=== PATIENT | female | born 1980 | race Caucasian/White ===

== ENCOUNTER 2023-10-05 11:52 | Emergency (ER) | payer OTHER ==
[~2023-10-05] VITALS: Ht 167.6 cm; Wt 77.1 kg
[2023-10-05 15:12] VITALS: BP 127/75
== END 2023-10-05 16:50 | disposition home or self-care (01) ==
LOC: ER 11:52
DX: K44.9 Diaphragmatic hernia without obstruction or gangrene (principal); K21.9 Gastro-esophageal reflux disease without esophagitis; R11.0 Nausea; Z88.8 Allergy status to other drugs, medicaments and biological substances

== ENCOUNTER 2023-12-27 10:50 | Emergency (ER) | payer OTHER ==
[~2023-12-27] VITALS: Ht 170.2 cm; Wt 68.0 kg
[~2023-12-27 10:50] MED LIST: ALMACONE SUSPE355 ML PO; ANUCORT-HC25 M6 PR; Amoxicillin500 MG PO; DOC250 PO; FAMO20 PO; METO10 PO; OMEP20ER PO; PROM12.5S PR; Zofran4 MG PO
[2023-12-27] MEDS ORDERED: Pantoprazole Sodium 40 MG Injection IV ONE (11:00)
[2023-12-27] MEDS ORDERED: Droperidol 5 mg/2 ml Vial IV ONE (11:00)
[2023-12-27] MEDS ORDERED: NS 1,000 ML IV SCH (11:00)
[2023-12-27 11:32] LABS: BASOPHILS ABSOLUTE AUTO 0.09 K/mm3 (0.00-0.23); BASOPHILS PERCENT AUTO 1 % (0-2); EOSINOPHILS ABSOLUTE AUTO 0.18 K/mm3 (0.00-0.68); EOSINOPHILS PERCENT AUTO 1 % (0-6); Hematocrit 45.8 % (33.0-51.0); Hemoglobin 15.6 g/dL (11.5-16.0); IMMATURE GRAN ABSOLUTE AUTO 0.06 K/mm3 (0.00-0.10); IMMATURE GRAN PERCENT AUTO 1 % (0-1); LYMPHOCYTES ABSOLUTE AUTO 2.66 K/mm3 (0.84-5.20); LYMPHOCYTES PERCENT AUTO 21 % (21-46); MONOCYTES ABSOLUTE AUTO 0.52 K/mm3 (0.16-1.47); MONOCYTES PERCENT AUTO 4 % (4-13); Mean Corpuscular HGB 31.9 pg (26.0-34.0); Mean Corpuscular HGB Conc 34.1 g/dL (31.5-36.5); Mean Corpuscular Volume 94 fL (80-100); Mean Platelet Volume 12.6 fL (9.1-12.4); NEUTROPHILS ABSOLUTE AUTO 9.48 K/mm3 (1.96-9.15); NEUTROPHILS PERCENT AUTO 73 % (41-73); Platelet Count 233 K/mm3 (150-400); RDW Coefficient Variation 13.5 % (11.7-14.2); RDW Standard Deviation 46.9 fL (35.1-46.3); Red Blood Cell Count 4.89 M/mm3 (3.80-5.20); White Blood Cell Count 12.99 K/mm3 (4.00-11.30)
[2023-12-27 11:53] LABS: Albumin/Globulin Ratio 1.1 (0.8-1.8); Bilirubin, Total 0.5 mg/dL (0.1-1.0); Bun/Creatinine Ratio 16.1 (12.0-20.0); Creatinine, Blood 0.75 mg/dL (0.40-1.00); Globulin, Blood 3.5 g/dL (2.2-4.0); Potassium, Blood 3.9 mmol/L (3.5-5.5); Total Protein, Blood 7.5 g/dL (6.4-8.2)
[2023-12-27] MEDS ORDERED: PROM25 PO (12:14)
[2023-12-27] MEDS ORDERED: Mag Hydrox/AL Hydrox/Simeth 30 ML UDC PO ONE (12:15)
[2023-12-27] MEDS ORDERED: Lidocaine 2% Viscous Soln 15 ML UDC PO ONE (12:15)
[2023-12-27 12:49] VITALS: BP 134/71
== END 2023-12-27 12:51 | disposition home or self-care (01) ==
LOC: ER 10:50
PROVIDERS: Emergency Medicine
DX: R10.13 Epigastric pain (principal); R11.2 Nausea with vomiting, unspecified; Z79.899 Other long term (current) drug therapy; Z88.8 Allergy status to other drugs, medicaments and biological substances; Z88.1 Allergy status to other antibiotic agents
CPT/HCPCS: 80053; 83690; 85025; A9270; C9113; J1790; J7030

== ENCOUNTER → 2024-02-16 | Outpatient (CLI) | payer OTHER ==
[~2024-02-16] MED LIST changes: +ONDA4ODT MM; +PROM25 PO
[2024-02-25 13:50] LABS: HPV HIGH RISK BY TMA Not Detected; HPV SOURCE Cervical
== END ==
LOC: LAB SHORT 17:23 → LAB 17:23
PROVIDERS: Family Medicine
DX: Z11.51 Encounter for screening for human papillomavirus (HPV) (principal)
CPT/HCPCS: 87624; G0123

== ENCOUNTER 2024-02-20 15:44 | Emergency (ER) | payer OTHER ==
[~2024-02-20] VITALS: Ht 167.6 cm; Wt 68.0 kg
[2024-02-20] MEDS ORDERED: Ondansetron HCl 2 MG / ML 2ML Vial IV PRN (16:05)
[2024-02-20] MEDS ORDERED: Droperidol 5 mg/2 ml Vial IV ONE (16:50)
[2024-02-20] MEDS ORDERED: NS 1,000 ML IV SCH (16:50)
[2024-02-20 17:27] LABS: BASOPHILS ABSOLUTE AUTO 0.08 K/mm3 (0.00-0.23); BASOPHILS PERCENT AUTO 1 % (0-2); EOSINOPHILS ABSOLUTE AUTO 0.17 K/mm3 (0.00-0.68); EOSINOPHILS PERCENT AUTO 2 % (0-6); Hematocrit 41.1 % (33.0-51.0); Hemoglobin 13.8 g/dL (11.5-16.0); IMMATURE GRAN ABSOLUTE AUTO 0.04 K/mm3 (0.00-0.10); IMMATURE GRAN PERCENT AUTO 0 % (0-1); LYMPHOCYTES ABSOLUTE AUTO 1.99 K/mm3 (0.84-5.20); LYMPHOCYTES PERCENT AUTO 17 % (21-46); MONOCYTES ABSOLUTE AUTO 0.61 K/mm3 (0.16-1.47); MONOCYTES PERCENT AUTO 5 % (4-13); Mean Corpuscular HGB 31.3 pg (26.0-34.0); Mean Corpuscular HGB Conc 33.6 g/dL (31.5-36.5); Mean Corpuscular Volume 93 fL (80-100); Mean Platelet Volume 12.1 fL (9.1-12.4); NEUTROPHILS ABSOLUTE AUTO 8.72 K/mm3 (1.96-9.15); NEUTROPHILS PERCENT AUTO 75 % (41-73); Platelet Count 208 K/mm3 (150-400); RDW Coefficient Variation 14.1 % (11.7-14.2); RDW Standard Deviation 47.7 fL (35.1-46.3); Red Blood Cell Count 4.41 M/mm3 (3.80-5.20); White Blood Cell Count 11.61 K/mm3 (4.00-11.30)
[2024-02-20 17:46] LABS: Albumin, Blood 3.4 g/dL (3.4-5.0); Bilirubin, Total 0.5 mg/dL (0.1-1.0); Bun/Creatinine Ratio 8.3 (12.0-20.0); Calcium, Blood 10.2 mg/dL (8.5-10.1); Creatinine, Blood 0.6 mg/dL (0.40-1.00); Globulin, Blood 3.3 g/dL (2.2-4.0); Potassium, Blood 3.6 mmol/L (3.5-5.5); Total Protein, Blood 6.7 g/dL (6.4-8.2)
[2024-02-20] MEDS ORDERED: FentaNYL Citrate 50 MCG/ML 2 ML Injection IV ONE (18:50)
[2024-02-20] MEDS ORDERED: RX Prepack 2 Tabs Ondansetron ODT 4MG UD ONE ×2 (18:50→19:15)
[2024-02-20] MEDS ORDERED: ONDA4ODT MM (19:13)
[2024-02-20 19:45] VITALS: BP 113/64
== END 2024-02-20 19:45 | disposition home or self-care (01) ==
LOC: ER 15:44
PROVIDERS: Emergency Medicine
DX: K21.9 Gastro-esophageal reflux disease without esophagitis (principal); K44.9 Diaphragmatic hernia without obstruction or gangrene; F17.210 Nicotine dependence, cigarettes, uncomplicated; Z88.8 Allergy status to other drugs, medicaments and biological substances; Z88.1 Allergy status to other antibiotic agents; Z79.899 Other long term (current) drug therapy
CPT/HCPCS: 80053; 83690; 85025; 93005; 93010; 96361; 96374; 96375; 99284-25; A9270; J1790; J3010; J7030

== ENCOUNTER → 2024-04-10 | Outpatient (CLI) | payer OTHER ==
[2024-04-12 14:13] LABS: PANCREATIC ELASTASE,FECAL 16 ug/g (>=100)
== END ==
LOC: LAB 06:12 → LAB SHORT 06:12 → LAB FUT 03-24 12:35
PROVIDERS: Student in an Organized Health Care Education/Training Program
DX: K21.9 Gastro-esophageal reflux disease without esophagitis (principal); R10.13 Epigastric pain; K64.8 Other hemorrhoids; R11.2 Nausea with vomiting, unspecified; Z12.11 Encounter for screening for malignant neoplasm of colon; R63.4 Abnormal weight loss
CPT/HCPCS: 82653

== ENCOUNTER 2024-05-30 13:27 | Emergency (ER) | payer OTHER ==
[~2024-05-30] VITALS: Ht 165.1 cm; Wt 58.1 kg
[2024-05-30 14:57] VITALS: BP 117/68
[2024-05-30 15:40] LABS: Albumin, Blood 3.6 g/dL (3.4-5.0); Albumin/Globulin Ratio 1.1 (0.8-1.8); Bilirubin, Total 0.6 mg/dL (0.1-1.0); Bun/Creatinine Ratio 9.5 (12.0-20.0); Calcium, Blood 9.2 mg/dL (8.5-10.1); Creatinine, Blood 0.53 mg/dL (0.40-1.00); Globulin, Blood 3.2 g/dL (2.2-4.0); Potassium, Blood 3.7 mmol/L (3.5-5.5); Total Protein, Blood 6.8 g/dL (6.4-8.2)
[2024-05-30 15:44] LABS: BASOPHILS ABSOLUTE AUTO 0.09 K/mm3 (0.00-0.23); BASOPHILS PERCENT AUTO 1 % (0-2); EOSINOPHILS ABSOLUTE AUTO 0.21 K/mm3 (0.00-0.68); EOSINOPHILS PERCENT AUTO 2 % (0-6); IMMATURE GRAN ABSOLUTE AUTO 0.03 K/mm3 (0.00-0.10); IMMATURE GRAN PERCENT AUTO 0 % (0-1); LYMPHOCYTES PERCENT AUTO 35 % (21-46); MONOCYTES ABSOLUTE AUTO 0.63 K/mm3 (0.16-1.47); MONOCYTES PERCENT AUTO 7 % (4-13); Mean Corpuscular HGB 32.3 pg (26.0-34.0); Mean Corpuscular Volume 92 fL (80-100); NEUTROPHILS ABSOLUTE AUTO 4.79 K/mm3 (1.96-9.15); NEUTROPHILS PERCENT AUTO 54 % (41-73); RDW Coefficient Variation 13.7 % (11.7-14.2); RDW Standard Deviation 46.7 fL (35.1-46.3); Red Blood Cell Count 4.33 M/mm3 (3.80-5.20); White Blood Cell Count 8.85 K/mm3 (4.00-11.30)
[2024-05-30 15:46] LABS: Mean Platelet Volume 11.3 fL (9.1-12.4)
[2024-05-30 16:30] LABS: Platelet Count 182 K/mm3 (150-400)
[2024-05-30] MEDS ORDERED: OMEP20ER PO (19:16)
[2024-05-30] MEDS ORDERED: PROM12.5S PR (19:16)
== END 2024-05-30 19:22 | disposition home or self-care (01) ==
LOC: ER 13:27
PROVIDERS: Physician Assistant
DX: K44.9 Diaphragmatic hernia without obstruction or gangrene (principal); G89.29 Other chronic pain; R10.9 Unspecified abdominal pain; F17.210 Nicotine dependence, cigarettes, uncomplicated
CPT/HCPCS: 80053; 85025; 99284

== ENCOUNTER → 2024-06-02 | Outpatient (CLI) | payer OTHER ==
[2024-06-03 07:27] LABS: C DIFFICILE DNA NEGATIVE (Negative)
[2024-06-04 20:34] LABS: LACTOFERRIN,FECAL BY ELISA Negative (Negative)
[2024-06-05 14:36] LABS: CALPROTECTIN,FECAL 45 ug/g (<=49)
[2024-06-06 19:15] LABS: OVA AND PARASITE,FECAL INTERP Negative (Negative)
== END | disposition home or self-care (01) ==
LOC: LAB SHORT 13:50 → LAB 13:50 → LAB FUT 06-01 12:30 → EDSTATUS 06-01 12:30
PROVIDERS: Student in an Organized Health Care Education/Training Program
DX: R10.13 Epigastric pain (principal); R11.2 Nausea with vomiting, unspecified; R63.4 Abnormal weight loss
CPT/HCPCS: 83630; 83993; 87015; 87045; 87046; 87177; 87205; 87209; 87493; 87899

== ENCOUNTER 2024-07-10 11:33 | Emergency (ER) | payer OTHER ==
[~2024-07-10] VITALS: Ht 167.6 cm; Wt 70.8 kg
[2024-07-10 12:12] VITALS: BP 106/79
[2024-07-10] MEDS ORDERED: Acetaminophen 500 MG Tab PO ONE (16:50)
[2024-07-10] MEDS ORDERED: NS 1,000 ML IV SCH (16:50)
[2024-07-10] MEDS ORDERED: Prochlorperazine Edisylate 10 mg Vial IV ONE (16:50)
[2024-07-10] MEDS ORDERED: DiphenhydrAMINE HCl 50 MG/ML 1ML Vial IV ONE (16:50)
== END 2024-07-10 18:35 | disposition home or self-care (01) ==
LOC: ER 11:33
DX: R51.9 Headache, unspecified (principal)
CPT/HCPCS: 70450; 96361; 96374; 96375; 99284-25; A9270; J0780; J1200; J7030

== ENCOUNTER 2024-07-17 08:30 | Observation (INO) | payer OTHER ==
[~2024-07-17] VITALS: Ht 167.6 cm; Wt 54.8 kg
[2024-07-17] VITALS (14 sets, daily range): BP systolic 98–147; BP diastolic 54–96
[2024-07-17] MEDS ORDERED: Ketorolac Tromethamine 15mg Vial IV ONE (12:05)
[2024-07-17 12:14] LABS: BASOPHILS ABSOLUTE AUTO 0.08 K/mm3 (0.00-0.23); BASOPHILS PERCENT AUTO 1 % (0-2); EOSINOPHILS ABSOLUTE AUTO 0.22 K/mm3 (0.00-0.68); EOSINOPHILS PERCENT AUTO 2 % (0-6); Hematocrit 42.8 % (33.0-51.0); Hemoglobin 14.7 g/dL (11.5-16.0); IMMATURE GRAN ABSOLUTE AUTO 0.05 K/mm3 (0.00-0.10); IMMATURE GRAN PERCENT AUTO 0 % (0-1); LYMPHOCYTES PERCENT AUTO 27 % (21-46); MONOCYTES ABSOLUTE AUTO 1.01 K/mm3 (0.16-1.47); MONOCYTES PERCENT AUTO 8 % (4-13); Mean Corpuscular HGB 32.7 pg (26.0-34.0); Mean Corpuscular HGB Conc 34.3 g/dL (31.5-36.5); Mean Corpuscular Volume 95 fL (80-100); Mean Platelet Volume 10.5 fL (9.1-12.4); NEUTROPHILS ABSOLUTE AUTO 7.67 K/mm3 (1.96-9.15); NEUTROPHILS PERCENT AUTO 62 % (41-73); Platelet Count 265 K/mm3 (150-400); RDW Coefficient Variation 12.7 % (11.7-14.2); RDW Standard Deviation 43.9 fL (35.1-46.3); White Blood Cell Count 12.33 K/mm3 (4.00-11.30)
[2024-07-17 12:51] LABS: Albumin, Blood 3.7 g/dL (3.4-5.0); Albumin/Globulin Ratio 1.1 (0.8-1.8); Bilirubin, Total 0.5 mg/dL (0.1-1.0); Calcium, Blood 9.6 mg/dL (8.5-10.1); Creatinine, Blood 0.54 mg/dL (0.40-1.00); Globulin, Blood 3.5 g/dL (2.2-4.0); Potassium, Blood 4.4 mmol/L (3.5-5.5); Total Protein, Blood 7.2 g/dL (6.4-8.2)
[2024-07-17] MEDS ORDERED: FentaNYL Citrate 50 MCG/ML 2 ML Injection IV ONE ×2 (13:30→13:55)
[2024-07-17] MEDS ORDERED: Ondansetron HCl 2 MG / ML 2ML Vial IV ONE (13:55)
[2024-07-17] MEDS ORDERED: Lactated Ringer's 1,000 ML IV SCH (16:40)
[2024-07-17] MEDS ORDERED: CeFAZolin Sodium 2,000 MG in NS 100 ML IV SCH (16:45)
[2024-07-17] MEDS ORDERED: Metoclopramide HCl 5MG / ML 2ML Vial IV PRN (17:00)
[2024-07-17] MEDS ORDERED: OxyCODONE HCL 5 MG TAB PO PRN (17:00)
[2024-07-17] MEDS ORDERED: Ondansetron HCl 2 MG / ML 2ML Vial IV PRN (17:00)
[2024-07-17] MEDS ORDERED: Acetaminophen 325 MG TABLET PO PRN (17:05)
[2024-07-17] MEDS ORDERED: FLU VACC TS2024-25(6MOS UP)/PF 45 MCG/0.5 ML SYRINGE IM SCH (17:05)
[2024-07-17] MEDS ORDERED: Ketorolac Tromethamine 15mg Vial IV PRN (17:10)
[2024-07-17] MEDS ORDERED: Bupivacaine 0.5% HCl 5 MG/ML 30MLVIAL ONE (17:11)
[2024-07-17] MEDS ORDERED: CeFAZolin Sodium 2,000 MG VIAL ONE (17:14)
[2024-07-17] MEDS ORDERED: Dexamethasone Sod Phos 10 MG/ML 1ML VIAL ONE (17:15)
[2024-07-17] MEDS ORDERED: Rocuronium Bromide 10 MG/ML 5ML Injection IV ONE (17:15)
[2024-07-17] MEDS ORDERED: Midazolam HCl 1MG / ML 2ML Vial ONE (17:15)
[2024-07-17] MEDS ORDERED: Ondansetron HCl 2 MG / ML 2ML Vial ONE (17:15)
[2024-07-17] MEDS ORDERED: FentaNYL Citrate 50 MCG/ML 2 ML Injection ONE (17:15)
[2024-07-17] MEDS ORDERED: propofoL 20 ML IV ONE (17:15)
[2024-07-17] MEDS ORDERED: Sugammadex Sodium 200 MG/2ML SDV (100 MG/ML) ONE (17:15)
--- NOTE | 2024-07-17 17:15 | NUR ---
INTO [facility] VIA GURNEY. PT REPORTS / RIGHT GROIN AND ABDOMINAL PAIN. PT STATES "IT IS TOLERABLE RIGHT NOW." HISTORY AND ALLERGIES REVIEWED. LUNGS CLEARS. SATS 100 % ON RA. NPO STATUS CONFIRMED. PT HAS 4 BAGS OF BELONGINGS AND DENTURES, AND CELL PHONE PLACED BELOW THE GURNEY AND LABELED WITH PT ID STICKER.
--- NOTE | 2024-07-17 17:23 | NUR ---
#20 LEFT HAND.SITE CLEAR AND FLUSHES WELL.
[2024-07-17] MEDS ORDERED: Ketorolac Tromethamine 30mg Vial ONE (18:53)
--- NOTE | 2024-07-17 20:00 | NUR ---
ARRIVAL TO SURGICAL FLOOR ROOM 209 FROM PACU. PT ARRIVED TO ROOM, TRANSFERED TO BED VIA SLIDER SHEET FROM [facility]. PT TOLERATED WELL. IGNITION SOURCES PRESENT AND LOCKED ON UNIT. ORIENTED TO ROOM AND CALL LIGHT. CALL LIGHT IN REACH.
[2024-07-17] MEDS ORDERED: Famotidine 20 MG Tab PO SCH (21:00)
[2024-07-17] MEDS ORDERED: CREON DR 12,001 EACH PO (22:05)
[2024-07-17] MEDS ORDERED: TRAZ100 PO (22:07)
[2024-07-17] MEDS ORDERED: BUSP5 PO ×2 (22:08→22:09)
[2024-07-18 04:06] VITALS: BP 100/67
--- NOTE | 2024-07-18 04:32 | NUR ---
SHIFT SUMMARY NOC. PT POD 1 FOR HERNIA REPAIR. PT LAP SITES ON ABDOMEN X3 C/D/I. PT VOIDING URINE AND TOLERATING PO INTAKE. PT MEDICATED FOR PAIN WITH REPORTED RELIEF. DENTURES AT BEDSIDE. MAKES NEEDS KNOWN, CALL LIGHT IN REACH.
[2024-07-18 07:07] VITALS: BP 103/70
[2024-07-18] MEDS ORDERED: Omeprazole 20 MG CapCR PO SCH (09:00)
--- NOTE | 2024-07-18 11:13 | NUR ---
"Spiritual Care Visit | Pt. Request Pt. is awake in bed and welcomes my visit. Spouse is at bedside. Pt. is pleasant. Facilitated an extended life review and listeneed with interest and empathy. The family had several contacts in their life that are known to this conduit helper from the community. Considered matters of jessy and belief. Pt. displayed evidence of confidence and trust moving forward. Prayed with Pt. and spouse. Both verbalized gratitude for the spiritual care visit."
[2024-07-18] MEDS ORDERED: OXAYDO5 M1 PO (11:47)
[2024-07-18] MEDS ORDERED: PROM25 PO (11:48)
--- NOTE | 2024-07-18 12:32 | NUR ---
DISCHARGE POD 1 FEMORAL HERNIA REPAIR PT IND IN ROOM, AMBULATING WELL. PAIN CONTROLLED WELL PER EMAR. TOLERATING DIET. DENIES NAUSEA. LAP SITES REMAIN CDI. CURRENTLY AWAITING TRANSPORT AND WILL BE TAKEN OUT VIA WHEELCHAIR. ALL PRESCRIPTIONS PICKED UP PRIOR TO DISCHARGE. ALL QUESTIONS ANSWERED
== END 2024-07-18 13:02 | disposition home or self-care (01) ==
LOC: ER 08:30 → SURS 08:31
PROVIDERS: Student in an Organized Health Care Education/Training Program; ADMIT Surgery
DX: K41.30 Unilateral femoral hernia, with obstruction, without gangrene, not specified as recurrent (principal); K21.9 Gastro-esophageal reflux disease without esophagitis; E78.5 Hyperlipidemia, unspecified; G47.30 Sleep apnea, unspecified; J44.89 Other specified chronic obstructive pulmonary disease; F17.210 Nicotine dependence, cigarettes, uncomplicated; Z88.1 Allergy status to other antibiotic agents; Z88.8 Allergy status to other drugs, medicaments and biological substances; Z79.899 Other long term (current) drug therapy
CPT/HCPCS: 72193; 80053; 85025; 96374; 96375; 96376; 99285-25; A9270; C1781; G0378; J0690; J1100; J1885; J2250; J2405; J2704; J3010; J7120; Q9967